=== PATIENT | male | born 1945 | race Caucasian/White ===

== ENCOUNTER 2023-12-02 15:40 | Outpatient (CLI) | payer MEDICARE, SELFPAY ==
[2023-12-02 16:53] LABS: Prostate Specific Antigen 1.9 ng/mL (< OR = 4.0)
== END 2023-12-02 15:41 | disposition home or self-care (01) ==
PROVIDERS: PCP Student in an Organized Health Care Education/Training Program; Visit Provider Urology
DX: R97.20 Elevated prostate specific antigen [PSA] (principal)
CPT/HCPCS: 36415; 84153

== ENCOUNTER 2024-05-11 08:42 | Outpatient (CLI) | payer MEDICARE, SELFPAY | END 2024-05-11 08:43 | disposition home or self-care (01) | PROVIDERS: PCP Student in an Organized Health Care Education/Training Program; Visit Provider Otolaryngology | DX: H69.90 Unspecified Eustachian tube disorder, unspecified ear (principal); H90.3 Sensorineural hearing loss, bilateral | CPT/HCPCS: 92557; 92567 ==